=== PATIENT | female | born 1975 | race Caucasian/White ===

== ENCOUNTER → 2021-07-19 | Outpatient (CLI) | payer OTHER ==
[~2021-07-19] MED LIST: BENICAR40 MG PO; CALCIUM 500 +1 EAC3 PO; COLLAGEN HYDROLY1 GM PO; CRESTOR20 MG PO; CYCLOBENZAPRINE5 MG PO; GLUCOPHAGE1000 MG PO; LEXAPRO20 MG PO; MOBIC15 MG PO; NORCO 10-325 T1 EACH PO; PREDNISONE20 MG PO; TRULICITY1.5 MG/0.5 SQ; ULTRAM50 MG PO; VITAMIN B-125000 MC2 PO; ZANTAC150 MG PO
== END ==
LOC: KOH-I 15:43
DX: R10.32 Left lower quadrant pain (principal)
CPT/HCPCS: 74176

== ENCOUNTER → 2021-10-11 | Outpatient (CLI) | payer OTHER ==
[~2021-10-11] MED LIST changes: +APPLE CIDER VI500 MG PO; +BIOTIN PO; +ERRIN0.35 MG PO; +FOLIC ACID; +LO-DOSE ASPIRIN81 MG PO; +PEPCID40 MG PO; +PROTONIX20 MG PO
[2021-10-11 10:30] LABS: HEMOGLOBIN 12.8 gm/dl (12.3-15.3); RED BLOOD COUNT 4.7 M/UL (4.00-5.10); WHITE BLOOD COUNT 4.9 K/UL (4.5-11.0)
[2021-10-11 10:58] LABS: BUN/CREATININE RATIO 10 (0-10)
== END ==
LOC: OPSV2 09:00
PROVIDERS: Orthopaedic Surgery
DX: Z01.818 Encounter for other preprocedural examination (principal); M65.331 Trigger finger, right middle finger
CPT/HCPCS: 36415; 80048; 85027; 93005

== ENCOUNTER → 2021-10-17 | Day surgery (SDC) | payer OTHER ==
[~2021-10-17] MED LIST changes: +B-COMPLEX WIT400 MCG PO; -FOLIC ACID; +HYDROCODON-ACE1 EAC2 PO
== END | disposition home or self-care (01) ==
LOC: OR 05:41
DX: M65.331 Trigger finger, right middle finger (principal); I10 Essential (primary) hypertension; E78.5 Hyperlipidemia, unspecified; K21.9 Gastro-esophageal reflux disease without esophagitis; E11.9 Type 2 diabetes mellitus without complications; Z88.1 Allergy status to other antibiotic agents; Z88.8 Allergy status to other drugs, medicaments and biological substances; Z79.82 Long term (current) use of aspirin; Z79.84 Long term (current) use of oral hypoglycemic drugs; Z79.899 Other long term (current) drug therapy
CPT/HCPCS: 82962; 84703; J1100; J2250; J2405; J2704; J2765; J3010; J3370; J7120

== ENCOUNTER → 2022-02-06 | Outpatient (CLI) | payer OTHER ==
[~2022-02-06] MED LIST changes: +NORVASC5 MG PO
[2022-02-06 09:58] LABS: BUN/CREATININE RATIO 17 (0-10)
== END ==
LOC: OPSV2 08:00
PROVIDERS: Orthopaedic Surgery
DX: Z01.818 Encounter for other preprocedural examination (principal); M79.642 Pain in left hand
CPT/HCPCS: 80048; 93005

== ENCOUNTER → 2022-02-20 | Day surgery (SDC) | payer OTHER ==
[~2022-02-20] VITALS: Ht 162.6 cm; Wt 124.3 kg
== END | disposition home or self-care (01) ==
LOC: OR 07:30
DX: M65.332 Trigger finger, left middle finger (principal); I10 Essential (primary) hypertension; K21.9 Gastro-esophageal reflux disease without esophagitis; E78.5 Hyperlipidemia, unspecified; E11.9 Type 2 diabetes mellitus without complications
CPT/HCPCS: 82962; 84703; J0690; J2250; J2704; J3010